=== PATIENT | female | born 1995 | race Caucasian/White ===

== ENCOUNTER 2020-10-10 20:29 | Emergency (ER) | payer OTHER ==
[~2020-10-10 20:29] MED LIST: DOC-Q-LACE100 MG PO; DOCUSATE SODIU100 M1 PO; FERROUS SULFAT325 M2 PO; IBUPROFEN600 MG PO; MIRALAX17 GM PO; PHENERGAN 12.12.5 M1 PO; PRENATAL VITAM1 EAC6 PO; TYLENOL W/CODEIN1 E1 PO
[2020-10-10 21:10] LABS: HEMOGLOBIN 14.9 gm/dl (12.3-15.3); WHITE BLOOD COUNT 10.8 K/UL (4.5-11.0)
[2020-10-10 21:35] LABS: BUN/CREATININE RATIO 16 (0-10)
[2020-10-10] MEDS ORDERED: PHENERGAN 25 MG25 M1 PO (23:41)
[2020-10-10] MEDS ORDERED: MACROBID 100 M100 MG PO (23:53)
== END 2020-10-11 00:02 | disposition home or self-care (01) ==
LOC: ER1 20:29
PROVIDERS: Family Medicine
DX: R11.2 Nausea with vomiting, unspecified (principal); F17.200 Nicotine dependence, unspecified, uncomplicated
CPT/HCPCS: 80053; 81001; 83690; 84703; 85025; 87086; 96374; 96375; 99284; J2060; J2405

== ENCOUNTER 2021-03-01 17:11 | Emergency (ER) | payer OTHER ==
[~2021-03-01 17:11] MED LIST changes: +MACROBID 100 M100 MG PO; +PHENERGAN 25 MG25 M1 PO
[2021-03-01 21:40] LABS: HEMOGLOBIN 14.5 gm/dl (12.3-15.3); RED BLOOD COUNT 4.82 M/UL (4.00-5.10); WHITE BLOOD COUNT 11.5 K/UL (4.5-11.0)
[2021-03-01 22:06] LABS: BUN/CREATININE RATIO 5 (0-10)
[2021-03-01] MEDS ORDERED: ASPIRIN81 MG PO (22:38)
== END 2021-03-01 22:50 | disposition home or self-care (01) ==
LOC: ER1 17:11
PROVIDERS: Family Medicine
DX: G45.9 Transient cerebral ischemic attack, unspecified (principal)
CPT/HCPCS: 70450; 80053; 82550; 82553; 83874; 84484; 85025; 85610; 85652; 86140; 93005; 99284

== ENCOUNTER 2021-03-03 21:04 | Emergency (ER) | payer OTHER ==
[~2021-03-03 21:04] MED LIST changes: +ASPIRIN81 MG PO
[2021-03-03 22:19] LABS: HEMOGLOBIN 14.4 gm/dl (12.3-15.3); RED BLOOD COUNT 4.9 M/UL (4.00-5.10); WHITE BLOOD COUNT 11.8 K/UL (4.5-11.0)
[2021-03-03 22:41] LABS: BUN/CREATININE RATIO 11 (0-10)
== END 2021-03-04 00:32 | disposition home or self-care (01) ==
LOC: ER1 21:04
PROVIDERS: Physician Assistant
DX: G81.94 Hemiplegia, unspecified affecting left nondominant side (principal); F17.200 Nicotine dependence, unspecified, uncomplicated
CPT/HCPCS: 70496; 70498; 71045; 80053; 82550; 82553; 83735; 83874; 84484; 84703; 85025; 85610; 85730; 99285; Q9967

== ENCOUNTER 2021-07-11 21:36 | Emergency (ER) | payer OTHER ==
[2021-07-11 22:46] LABS: HEMOGLOBIN 14.6 gm/dl (12.3-15.3); RED BLOOD COUNT 4.96 M/UL (4.00-5.10); WHITE BLOOD COUNT 10.3 K/UL (4.5-11.0)
[2021-07-11 23:07] LABS: BUN/CREATININE RATIO 11 (0-10)
[2021-07-12] MEDS ORDERED: ZOFRAN4 MG PO (02:11)
== END 2021-07-12 02:33 | disposition home or self-care (01) ==
LOC: ER1 21:36
PROVIDERS: Physician Assistant Medical
DX: R11.2 Nausea with vomiting, unspecified (principal); F17.210 Nicotine dependence, cigarettes, uncomplicated
CPT/HCPCS: 80053; 81001; 85025; 96374; 99284; J2405; J7030

== ENCOUNTER 2021-10-15 13:37 | Emergency (ER) | payer OTHER ==
[~2021-10-15 13:37] MED LIST changes: +ZOFRAN4 MG PO
[2021-10-15 15:54] LABS: HEMOGLOBIN 13.7 gm/dl (12.3-15.3); RED BLOOD COUNT 4.62 M/UL (4.00-5.10); WHITE BLOOD COUNT 11.9 K/UL (4.5-11.0)
[2021-10-15 16:06] LABS: BUN/CREATININE RATIO 13 (0-10)
[2021-10-15] MEDS ORDERED: IBUPROFEN800 MG PO (16:17)
[2021-10-15] MEDS ORDERED: CYCLOBENZAPRINE10 MG PO (16:17)
== END 2021-10-15 16:50 | disposition home or self-care (01) ==
LOC: ER1 13:37
PROVIDERS: Preventive Medicine Occupational Medicine
DX: M54.9 Dorsalgia, unspecified (principal); F17.210 Nicotine dependence, cigarettes, uncomplicated
CPT/HCPCS: 80048; 81001; 84703; 85025; 96374; 96375; 99284; J0696; J1885; J3360; J7030

== ENCOUNTER 2022-05-17 18:59 | Emergency (ER) | payer OTHER ==
[~2022-05-17 18:59] MED LIST changes: +CYCLOBENZAPRINE10 MG PO; +IBUPROFEN800 MG PO
[2022-05-17 19:45] LABS: HEMOGLOBIN 14.4 gm/dl (12.3-15.3); RED BLOOD COUNT 4.82 M/UL (4.00-5.10); WHITE BLOOD COUNT 10.6 K/UL (4.5-11.0)
[2022-05-17 20:05] LABS: BUN/CREATININE RATIO 9 (0-10)
== END 2022-05-17 23:41 | disposition home or self-care (01) ==
LOC: ER1 18:59
PROVIDERS: Physician Assistant
DX: R42 Dizziness and giddiness (principal); R53.83 Other fatigue; R52 Pain, unspecified; F17.200 Nicotine dependence, unspecified, uncomplicated
CPT/HCPCS: 0240U; 80053; 81001; 85025; 99284